=== PATIENT | female | born 1980 ===

== ENCOUNTER 2020-02-05 15:27 | Outpatient (REF) | payer MEDICARE, MEDICAID, SELFPAY ==
[2020-02-05 16:09] LABS: MANUAL DIFF FLAG NO
[2020-02-05 16:15] LABS: Basophils Percent Auto 0.1 % (0-2); Eosinophils Absolute Auto 0.1 X10*3/uL (0.0-0.4); Hematocrit 34.9 % (37-47); Hemoglobin 10.8 g/dl (12.0-16.0); Imm Gran Abs Auto 0.05 X10*3/uL (0.00-0.03); Imm Gran Pct Auto 0.6 % (0.0-0.4); Lymphocytes Absolute Auto 1.6 X10*3/uL (1.2-4.9); Lymphocytes Percent Auto 18.1 % (20-40); Mean Corpuscular HGB Conc 30.9 g/dl (31.0-35.0); Mean Corpuscular Hemoglobin 30.3 pg (27.0-33.0); Mean Platelet Volume 10.2 fL (9.4-12.3); Monocytes Absolute Auto 0.7 X10*3/uL (0.1-1.2); Monocytes Percent Auto 7.9 % (2-11); Neutrophils Absolute Auto 6.5 X10*3/uL (2.0-8.3); Neutrophils Percent Auto 72.3 % (45-73); Platelet Count 290 X10*3/uL (160-400); Red Blood Count 3.56 X10*6/uL (4.20-5.50); Red Cell Distribution Width 15.9 % (11.0-16.0)
[2020-02-05 16:19] LABS: Glucose Urine UA NEG (NEG); Leukocyte Esterase Urine NEG (NEG); Nitrite Urine NEG (NEG); PH 5.5 (5.0-8.0); Specific Gravity - Urine 1.015 (1.005-1.025); Urine Blood NEG (NEG); Urine Ketones NEG (NEG); Urine Protein NEG (NEG-TRACE)
[2020-02-05 16:20] LABS: Appearance Urine CLEAR; Color Urine YELLOW; D Dimer 203 NG/ML
[2020-02-05 16:43] LABS: Alanine Aminotransferase 33 U/L (0-31); Albumin Level 2.9 g/dL (3.5-5.0); Alkaline Phosphatase 129 U/L (39-117); Anion Gap 14 (12-20); Aspartate Amino Transferase 31 U/L (5-31); Bilirubin Direct < 0.2 mg/dL (0.0-0.5); Bilirubin Total 0.3 mg/dL (0.0-1.0); Blood Urea Nitrogen 8 mg/dL (9-16); Calcium 7.9 mg/dL (8.4-10.2); Carbon Dioxide 31 mmol/L (22-29); Chloride 100 mmol/L (96-108); Estimated Glomerular Filt Rate > 60; Glucose Random 87 mg/dL (60-115); Potassium 4.1 mmol/l (3.3-5.1); Sodium 141 mmol/L (135-145); Total Protein 5.7 g/dL (6.5-8.0)
== END 2020-02-05 15:28 | disposition home or self-care (01) ==
LOC: HO.LAB 15:27
PROVIDERS: Absent Provider Internal Medicine; PCP Internal Medicine
DX: K52.9 Noninfective gastroenteritis and colitis, unspecified (principal); R60.0 Localized edema; R62.7 Adult failure to thrive; E88.09 Other disorders of plasma-protein metabolism, not elsewhere classified
CPT/HCPCS: 36415; 80048; 80076; 81003; 85025; 85379

== ENCOUNTER 2020-07-31 10:22 | Outpatient (RCR) | payer OTHER, SELFPAY | END 2020-08-26 12:17 | disposition home or self-care (01) | LOC: HO.WCC 10:22 | PROVIDERS: PCP Internal Medicine; Visit Provider Physician Assistant | DX: L89.152 Pressure ulcer of sacral region, stage 2 (principal); F17.200 Nicotine dependence, unspecified, uncomplicated; Z86.718 Personal history of other venous thrombosis and embolism; I95.9 Hypotension, unspecified | CPT/HCPCS: 97597; 99212 ==

== ENCOUNTER 2021-07-19 10:01 | Emergency (ER) | payer OTHER, SELFPAY ==
--- NOTE | ~2021-07-19 | CT_ITS ---
EXAMINATION: CT ABDOMEN AND PELVIS WITH CONTRAST CLINICAL INFORMATION: RUQ pain, superficial, at J tube surgical site COMPARISON: 06/27/2017 TECHNIQUE: Multidetector volumetric imaging was performed from the superior aspect of the liver through the pubic symphysis following administration of 100 mL Omnipaque 300 intravenous contrast. Sagittal and coronal reformatted images were obtained on the technologist workstation.. This CT examination was performed using dose optimization techniques as appropriate, variously including the following: *Automated exposure control *Adjustment of mA and/or kV according to patient size (this includes techniques or standardized protocols for targeted exams where dose is matched to indication/reason for exam; i.e. extremities or head) *Use of iterative reconstruction technique DLP: 726 mGy-cm FINDINGS: LUNG BASES: The visualized lung bases are unremarkable. PERITONEAL SPACE: Small amount of free fluid seen within the dependent pelvis. LIVER, GALLBLADDER, AND BILIARY TREE: The liver is normal in size, shape, and attenuation. No focal hepatic lesion or biliary ductal dilatation is present. The gallbladder surgically absent. PANCREAS: Unremarkable. SPLEEN: Unremarkable. ADRENAL GLANDS: Unremarkable. KIDNEYS AND URETERS: The kidneys are normal in size, shape, and attenuation. No hydronephrosis, hydroureter, or calculi seen. No perinephric stranding. BLADDER: Unremarkable. GASTROINTESTINAL TRACT: Colon is decompressed but I do not appreciate any colonic wall thickening or pericolonic inflammatory changes. Anastomotic staple line is seen in what appears to be remaining portion of the transverse colon in the left midabdomen. Ileocolic anastomosis is patent with no obstructive changes. The patient is status post Madeleine-en-Y gastric bypass without obvious obstructive changes in the upper abdomen. ABDOMINAL WALL: Fluid is seen within a right upper quadrant along with appears to be a tract tract extending towards the area of the anastomotic clips adjacent bowel loops. The fluid that is seen does not appear to extend through the abdominal wall. There is mild surrounding inflammatory changes in the adjacent fat overlying skin. Etiology of this is uncertain.. LYMPHOVASCULAR STRUCTURES: No lymphadenopathy. The aorta is unremarkable. PELVIC VISCERA: Unremarkable. OSSEOUS STRUCTURES: Unremarkable. CT/CT abdomen pelvis w con IMPRESSION: Extensive chronic appearing changes are seen within both small and large bowel as well as a gastric bypass surgery. Following the bowel loops is extremely difficult. I do not appreciate any obstructive changes to the bowel. There is a small amount of free fluid in the pelvis of uncertain significance or etiology. There does appear to be fluid collection in the right upper quadrant along what appears to be a tract from prior tube. This collection measures approximately 3.1 x 1.7 cm in size in the axial images. There is mild surrounding inflammatory change to the adjacent fat and skin. This collection does not appear to definitively extend through the abdominal wall musculature and there is no intraperitoneal abnormality in this location. Clinical correlation will be needed.
[2021-07-19 11:16] VITALS: BP 146/83; PULSE 74; RESP 18; TEMP 36.9; O2SAT 100; BMI 23.1
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
[2021-07-19 12:27] LABS: MANUAL DIFF FLAG NO
[2021-07-19 12:36] LABS: Basophils Percent Auto 0.3 % (0-2); Eosinophils Absolute Auto 0.1 X10*3/uL (0.0-0.4); Eosinophils Percent Auto 0.5 % (0-4); Hematocrit 35.7 % (37.0-47.0); Hemoglobin 11.5 g/dl (12.0-16.0); Imm Gran Abs Auto 0.03 X10*3/uL (0.00-0.03); Imm Gran Pct Auto 0.3 % (0.0-0.4); Lymphocytes Absolute Auto 1.8 X10*3/uL (1.2-4.9); Lymphocytes Percent Auto 17.8 % (20-40); Mean Corpuscular HGB Conc 32.2 g/dl (31.0-35.0); Mean Corpuscular Hemoglobin 30.1 pg (27.0-33.0); Mean Corpuscular Volume 93.5 fL (80.0-98.0); Mean Platelet Volume 10.4 fL (9.4-12.3); Monocytes Absolute Auto 0.7 X10*3/uL (0.1-1.2); Neutrophils Absolute Auto 7.6 x10*3/uL (2.0-8.3); Neutrophils Percent Auto 74.1 % (45-73); Platelet Count 238 X10*3/uL (160-400); Red Blood Count 3.82 X10*6/uL (4.20-5.50); Red Cell Distribution Width 13.8 % (11.0-16.0); White Blood Count 10.3 X10*3/uL (4.8-10.8)
[2021-07-19] MEDS: traMADoL HCL 50 MG TABLET PO (12:36)
[2021-07-19 13:38] LABS: Alanine Aminotransferase 10 U/L (0-31); Albumin Level 3.5 g/dL (3.5-5.0); Alkaline Phosphatase 120 U/L (39-117); Anion Gap 9 (12-20); Aspartate Amino Transferase 14 U/L (5-31); Bilirubin Direct < 0.2 mg/dL (0.0-0.5); Bilirubin Total 0.2 mg/dL (0.0-1.0); Blood Urea Nitrogen 7 mg/dL (9-16); Calcium 8.4 mg/dL (8.4-10.2); Carbon Dioxide 26 mmol/L (22-29); Chloride 108 mmol/L (96-108); Creatinine Clr Calc Pharmacy 101.3; Estimated Glomerular Filt Rate > 60; Glucose Random 94 mg/dL (60-115); Potassium 4.1 mmol/L (3.3-5.1); Sodium 139 mmol/L (135-145); Total Protein 6.1 g/dL (6.5-8.0)
[2021-07-19 14:35] VITALS: BP 110/60; PULSE 88; RESP 18; TEMP 36.8; O2SAT 98
[2021-07-19 16:15] LABS: HCG Quantitative < 2 mIU/mL
[2021-07-19] MEDS: methylPREDNISolone Sod Succ 125 MG/2 ML VIAL IVPUSH (16:18)
[2021-07-19] MEDS: diphenhydrAMINE HCL 50 MG/ML VIAL IVPUSH (16:18)
[2021-07-19] MEDS: Famotidine/PF 20 MG/2 ML VIAL IVPUSH (16:18)
[2021-07-19] MEDS: iohexoL 350 MG/ML 100 ML INFUS..BTL IV (18:00)
[2021-07-19 19:38] VITALS: BP 151/81; PULSE 81; RESP 18; TEMP 37.3; O2SAT 99
[2021-07-19] MEDS: oxyCODONE HCl Immed Release 5 MG TABLET PO (20:22)
[2021-07-19] MEDS: Sulfamethox/Trimeth 800/160 TABLET 1 TAB PO (20:22)
== END 2021-07-19 20:26 | disposition home or self-care (01) ==
PROVIDERS: Emergency Provider Emergency Medicine; PCP Internal Medicine
DX: L03.311 Cellulitis of abdominal wall (principal); L76.34 Postprocedural seroma of skin and subcutaneous tissue following other procedure; R10.11 Right upper quadrant pain; R10.2 Pelvic and perineal pain; Z79.899 Other long term (current) drug therapy
CPT/HCPCS: 36415; 74177; 80048; 80076; 84702; 85025; 96374; 96375; 99284; 99285; J1200; J2930; Q9967

== ENCOUNTER → 2021-07-26 14:05 | Outpatient (BNVA) | payer OTHER, SELFPAY | PROVIDERS: PCP Internal Medicine; Referring Provider Internal Medicine; Visit Provider Surgery | DX: T79.2XXA Traumatic secondary and recurrent hemorrhage and seroma, initial encounter (principal) | CPT/HCPCS: 99202 ==

== ENCOUNTER 2022-08-11 11:18 | Emergency (ER) | payer OTHER, SELFPAY ==
--- NOTE | ~2022-08-11 | XR_ITS ---
EXAMINATION: XR ABDOMEN KUB CLINICAL INDICATION: Abdominal pain COMPARISON: November 20, [address] scan of July 19, 2021 TECHNIQUE: AP view of the abdomen. FINDINGS: Patient status post abdominal surgery with multiple clips and staple lines seen bilaterally. No dilated loops of large or small bowel are evident. No pneumatosis intestinalis. There are some phleboliths seen about the pelvis. No definite calculi are identified overlying the expected locations of the kidneys. There is a moderate stool burden present within the descending and sigmoid colon. No destructive bony abnormalities appreciated. XR/XR KUB IMPRESSION: No evidence of ileus or obstruction.
[2022-08-11 11:33] VITALS: BP 180/110; PULSE 90; RESP 14; TEMP 36.9; O2SAT 99; BMI 20.6
--- OUTSIDE RECORDS SUMMARY | 2022-08-11 11:46 | XMS_ITS | Continuity of Care Document ---
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
--- OUTSIDE RECORDS SUMMARY | 2022-08-11 11:46 | XMS_ITS | Continuity of Care Document ---
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 [employer]er Driver Name Role Phone Jarrod DANIELS, Spencer Primary Care Physician Encounter [facility] Date(s): 12/18/19 - 01/17/20 [facility] [address] [place] [id number]- [place] Allergies, Adverse Reactions, Alerts Substance Reaction Severity Status shellfish Anaphylactic reaction Active aspirin anaphylaxis Active penicillins anaphylaxis Active morphine Gastrointestinal upset Activ e Immunizations Given and Recorded Vaccine Date Status [...] 0 Refills, Maintenance, 05/21/19 9:41:00 EST, Tablet, [facility], 163, cm, 05/21/19 6:13:00 EST, [...] EDT, Supply Start Date: 11/25/19 Status: Ordered calcium carbonate 500 mg (200 [...] Active PTSD - Post-traumatic stress disorder(Confirmed) Active Social History Social History Type Response Smoking Status Former smoker entered on: 06/12/14 Sex
--- OUTSIDE RECORDS SUMMARY | 2022-08-11 11:46 | XMS_ITS | Continuity of Care Document ---
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
--- OUTSIDE RECORDS SUMMARY | 2022-08-11 11:46 | XMS_ITS | Continuity of Care Document ---
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 Role Phone Spencer Garay MD Primary Care Physician Encounter [facility] [place] [place] Date(s): 08/01/19 - 08/31/19 [facility] [address] [place] [address]- [place] Attending Physician: Admmyah, Lynn Admitting Physician: AdmtrLynn Referring Physician: Admtr, Ar8 Allergies, Adverse Reactions, [...] 0 Refills, Maintenance, 05/21/19 9:41:00 EST, Tablet, [facility], 163, cm, 05/21/19 6:13:00 [...] EST, Suppository Start Date: 05/14/19 Status: Ordered calcium carbonate 500 mg (200 [...] EDT, Tablet Start Date: 08/13/19 Status: Ordered Lasix 40 mg oral tablet [...] CR Tablet Start Date: 08/13/19 Status: Ordered Protonix 40 mg oral delayed [...]
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
--- OUTSIDE RECORDS SUMMARY | 2022-08-11 11:46 | XMS_ITS | Continuity of Care Document ---
Author Name Unknown Organization [facility] em Address Unknown Care Team Providers Care Online Content Developer Name Role Phone Spencer Garay MD Primary Care Physician [place] [facility] [place] Date(s): 04/29/20 - 05/29/20 [facility] Attending Physician: Lynn Nguyen Admitting Physician: Lynn Nguyen Referring Physician: Lynn Nguyen Allergies, Adverse Reactions, Alerts Substance Reaction Severity [...] 0 Refills, Maintenance, 05/21/19 9:41:00 EST, Tablet, [facility], 163, cm, 05/21/19 6:13:00 [...]
--- OUTSIDE RECORDS SUMMARY | 2022-08-11 11:47 | XMS_ITS | Continuity of Care Document ---
Author Name Unknown Organization [facility] Address [address] [place] [address]- Care Team Providers Care Hide Buffer Name Role Phone Jarrod DANIELS, Spencer Primary Care Physician Encounter [facility] [place] Date(s): 03/18/20 - 04/17/20 [facility] [address] [place] [address]- Attending Physician: Lynn Nguyen Admitting Physician: AdmtrLynn Referring Physician: Admtr, Ar8 [...] 0 Refills, Maintenance, 05/21/19 9:41:00 EST, Tablet, [facility], 163, cm, 05/21/19 [...]
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
--- OUTSIDE RECORDS SUMMARY | 2022-08-11 11:47 | XMS_ITS | Continuity of Care Document ---
Author Name Unknown Organization [facility]ology Address [address] [place] [address]- Care Team Providers Care Labor And Delivery Nurse Name Role Phone Spencer Garay MD Primary Care Physician [phone] Encounter [facility] [place] Date(s): 04/29/19 - 05/06/19 [facility] Gastroenterology [address] [place] [address]- [place] Attending Physician: Nancy Hearn MD Admitting Physician: Nancy Hearn MD Referring Physician: Paulino Miller MD Allergies, Adverse Reactions, Alerts Substance Reaction [...] recent to oldest [Reference Range]: 1 Height 163 cm (04/29/19 3:32 PM) Oxygen Saturation [94-100 %] 88 % *L* (04/29/19 3:32 PM) Pulse Rate [55-90 bpm] 59 bpm (04/29/19 3:32 PM) Blood Pressure [90-138/55-84 mm Hg] 110/ 66mm Hg (04/29/19 3:32 PM) Blood pressure sites Arm, left (04/29/19 3:32 PM) Social History Social History Type Response Smoking Status Former smoker entered on: 06/12/14 Sex
--- OUTSIDE RECORDS SUMMARY | 2022-08-11 11:47 | XMS_ITS | Continuity of Care Document ---
Author Name Unknown Organization [facility]enterology Address [address] [place] [address]- Care Team Providers Care Mutuel Cashier Name Role Phone Jarrod DANIELS, Spencer Primary Care Physician Encounter [facility] [place] Date(s): 11/27/19 - 12/27/19 [facility] G[facility] [address] [place] [address]- [place] Allergies, Adverse Reactions, Alerts Substance Reaction [...] 0 Refills, Maintenance, 05/21/19 9:41:00 EST, Tablet, [facility], 163, cm, 05/21/19 6:13:00 [...]
--- OUTSIDE RECORDS SUMMARY | 2022-08-11 11:47 | XMS_ITS | Continuity of Care Document ---
Author Name Unknown Organization [facility] Address [address] [place] [address]- Care Team Providers Care Telephone Operator Name Role Phone Spencer Garay MD Primary Care Physician [phone] Encounter [facility] [place] Date(s): 04/29/19 - 07/24/19 [facility]astroenter[facility] [address] [place] [address]- [place] Attending Physician: Nancy Hearn MD Admitting Physician: Nancy Hearn MD Referring Physician: Spencer Garay MD Allergies, Adverse Reactions, Alerts Substance Reaction [...] EDT, Tablet Start Date: 06/10/19 Status: Ordered Bisac-Evac 10 mg rectal suppository 1 supp = 10 mg, Rectally, Daily, PRN for constipation, Maintenance, 05/14/19 17:41:00 EST, Suppository Start Date: 05/14/19 Status: Ordered calcium carbonate 500 mg (200 mg elemental calcium) oral tablet, chewable 500 mg, 1, tablet, Chew, 3 times a day, Refills 0, Maintenance, 06/10/19 12:02:00 EDT Start Date: 06/10/19 Status: Ordered ergocalciferol 2000 intl units oral capsule 1 capsule = 2,000 International_Units, By Mouth, Daily, Maintenance, 05/14/19 16:55:00 EST Start Date: 05/14/19 Status: Ordered ferrous sulfate 324 mg (65 mg elemental iron) oral delayed release tablet 1 tablet = 324 mg, By Mouth, 2 times a day, Maintenance, 05/14/19 16:58:00 EST Start Date: 05/14/19 Status: Ordered Lasix 40 mg oral tablet [...] EDT, Tablet Start Date: 06/10/19 Status: Ordered methadone 10 mg/5 mL oral solution 10 mL = 20 mg, By Mouth, 2 times a day, 0 Refills, Maintenance, 06/05/19 2:14:00 EDT, Partial fill upon patient request Start Date: 06/05/19 Status: Ordered Milk of Magnesia 8% oral suspension 30 mL = 2.4 Gm, By Mouth, Daily, PRN for constipation, Maintenance, 05/14/19 17:40:00 EST, Suspension Start Date: 05/14/19 Status: Ordered Multivit Therapeutic/Minerals Liquid 15 mL, By Mouth, Daily, 0 Refills, Maintenance, 06/10/19 12:03:00 EDT, Liquid Start Date: 06/10/19 Status: Ordered Protonix 40 mg oral delayed [...]
--- OUTSIDE RECORDS SUMMARY | 2022-08-11 11:47 | XMS_ITS | Continuity of Care Document ---
Author Name Unknown Organization [facility] Address [address] [place] [address]- Care Team Providers Care Project Lead Name Role Phone Jarrod DANIELS, Spencer Primary Care Physician [place] [facility] [place] 03/18/20 - 03/25/20 [facility] G[facility]enterology [address] [place] [address]- Attending Physician: Nancy Hearn MD Admitting Physician: [...] 0 Refills, Maintenance, 05/21/19 9:41:00 EST, Tablet, [facility], 163, cm, 05/21/19 [...]
--- OUTSIDE RECORDS SUMMARY | 2022-08-11 11:47 | XMS_ITS | Continuity of Care Document ---
Author Name Unknown Organization [facility]enterology Address [address] [place] [address]- Care Team Providers Care Template Cutter Name Role Phone Spencer Garay MD Primary Care Physician [phone] Encounter [facility] [place] Date(s): 12/09/19 - 12/16/19 [facility] Gastroenterology [address] [place] [address]- [place] Attending Physician: Nancy Hearn MD Admitting [...] 0 Refills, Maintenance, 05/21/19 9:41:00 EST, Tablet, [facility], 163, cm, 05/21/19 6:13:00 [...] oldest [Reference Range]: 1 Height 162.5 cm (12/09/19 3:16 PM) Oxygen Saturation [94-100 %] 98 % (12/09/19 3:16 PM) Pulse Rate [55-90 bpm] 82 bpm (12/09/19 3:16 PM) Blood Pressure [90-138/55-84 mm Hg] 114/ 66mm Hg (12/09/19 3:16 PM) Blood pressure sites Arm, right (12/09/19 3:16 PM) Weight Obtained Via Standing scale (12/09/19 3:16 PM) Social History Social History Type Response Smoking Status Former smoker entered on: 06/12/14 Sex
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
--- OUTSIDE RECORDS SUMMARY | 2022-08-11 11:47 | XMS_ITS | Continuity of Care Document ---
Author Name Unknown Organization [facility] oenterology Address [address] [place] [address]- Care Team Providers Care Childcare Worker Name Role Phone Jarrod DANIELS, Spencer Primary Care Physician [place] [facility] [place](s): 03/30/20 - 04/29/20 [facility] Gastroenterology [address] [place] [address]- Allergies, Adverse Reactions, Alerts Substance Reaction Severity [...] 0 Refills, Maintenance, 05/21/19 9:41:00 EST, Tablet, [facility], 163, cm, 05/21/19 6:13:00 [...]
--- OUTSIDE RECORDS SUMMARY | 2022-08-11 11:47 | XMS_ITS | Continuity of Care Document ---
Author Name Unknown Organization [facility] oenterology Address [address] [place] [address]- Care Team Providers Care Ocean Transportation Intermediary Name Role Phone Spencer Garay MD Primary Care Physician [place] [facility] [place](s): 10/30/19 - 11/06/19 [facility] Gastroenterology [address] [place] [address]- [place] Attending Physician: Nancy Hearn MD Admitting [...] 0 Refills, Maintenance, 05/21/19 9:41:00 EST, Tablet, [facility], 163, cm, [...]
--- OUTSIDE RECORDS SUMMARY | 2022-08-11 11:47 | XMS_ITS | Continuity of Care Document ---
Author Name Unknown Organization [facility] em Address Unknown Care Team Providers Care Ribbing Machine Operator Name Role Phone Spencer Garay MD Primary Care Physician En[facility] [place] Date(s): 04/29/20 - 05/06/20 [facility] Attending Physician: Ed Soto MD Admitting Physician: Ed Soto MD Referring Physician: Not on Staff, Referring [...] 0 Refills, Maintenance, 05/21/19 9:41:00 EST, Tablet, [facility], 163, cm, 05/21/19 6:13:00 EST, [...] oldest [Reference Range]: 1 Height 162.5 cm (04/29/20 10:53 AM) Pulse Rate [55-90 bpm] 105 bpm *H* (04/29/20 10:53 AM) Respiratory Rate [16-30 br/min] 14 br/mi n *L* (04/29/20 10:53 AM) Temperature [96.8-100.4 DegF] 99.2 DegF (04/29/20 10:53 AM) Temperature Route Oral (04/29/20 10:53 AM) Social History Social History Type Response Smoking Status Former smoker entered on: 06/12/14 Sex
--- OUTSIDE RECORDS SUMMARY | 2022-08-11 11:47 | XMS_ITS | Continuity of Care Document ---
Author Name Unknown Organization [facility] em Address Unknown Care Team Providers Care Custodian Blood Bank Name Role Phone Jarrod DANIELS, Spencer Primary Care Physician Encounter [facility] [place] Date(s): 04/20/20 - 05/22/20 [facility] Attending Physician: Ed Soto MD Admitting Physician: Ed Soto MD Referring Physician: Nancy Hearn MD Allergies, Adverse Reactions, Alerts Substance Reaction [...] 0 Refills, Maintenance, 05/21/19 9:41:00 EST, Tablet, [facility], 163, cm, 05/21/19 6:13:00 [...]
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
--- OUTSIDE RECORDS SUMMARY | 2022-08-11 11:47 | XMS_ITS | Continuity of Care Document ---
Author Name Unknown Organization [facility] Address [address] [place] [address]- Care Team Providers Care Nutrition Educator Name Role Phone Spencer Garay MD Primary Care Physician Encounter [facility] [place] Date(s): 08/01/19 - 08/08/19 [facility] [address] [place] [address]- [place] Attending Physician: Nancy Hearn MD Admitting Physician: Nancy Hearn MD Referring Physician: Not on Staff, Referring [...] 0 Refills, Maintenance, 05/21/19 9:41:00 EST, Tablet, [facility], 163, cm, 05/21/19 6:13:00 [...]
[2022-08-11 12:40] LABS: MANUAL DIFF FLAG NO
[2022-08-11 12:46] LABS: Basophils Percent Auto 0.3 % (0-2); Eosinophils Percent Auto 0.4 % (0-4); Hematocrit 29.6 % (37.0-47.0); Hemoglobin 9.3 g/dl (12.0-16.0); Imm Gran Abs Auto 0.01 X10*3/uL (0.00-0.03); Imm Gran Pct Auto 0.1 % (0.0-0.4); Lymphocytes Absolute Auto 1.2 X10*3/uL (1.2-4.9); Lymphocytes Percent Auto 16.6 % (20-40); Mean Corpuscular HGB Conc 31.4 g/dl (31.0-35.0); Mean Corpuscular Hemoglobin 25.9 pg (27.0-33.0); Mean Corpuscular Volume 82.5 fL (80.0-98.0); Monocytes Absolute Auto 0.3 X10*3/uL (0.1-1.2); Monocytes Percent Auto 4.6 % (2-11); Neutrophils Absolute Auto 5.8 x10*3/uL (2.0-8.3); Platelet Count 260 X10*3/uL (160-400); Red Blood Count 3.59 X10*6/uL (4.20-5.50); Red Cell Distribution Width 16.6 % (11.0-16.0); White Blood Count 7.4 X10*3/uL (4.8-10.8)
[2022-08-11 12:58] LABS: Alanine Aminotransferase 7 U/L (0-31); Albumin Level 3.1 g/dL (3.5-5.0); Alkaline Phosphatase 101 U/L (39-117); Anion Gap 10 (12-20); Aspartate Amino Transferase 16 U/L (5-31); Bilirubin Total 0.3 mg/dL (0.0-1.0); Blood Urea Nitrogen 5 mg/dL (9-16); Calcium 8.4 mg/dL (8.4-10.2); Carbon Dioxide 22 mmol/L (22-29); Chloride 110 mmol/L (96-108); Creatinine Clr Calc Pharmacy 95.4; Estimated Glomerular Filt Rate > 60; Glucose Random 94 mg/dL (60-115); Lipase 9 U/L (8-78); Potassium 4.3 mmol/L (3.3-5.1); Sodium 138 mmol/L (135-145)
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
[2022-08-11 13:52] VITALS: BP 113/80; PULSE 69; RESP 14; TEMP 36.9; O2SAT 98
[2022-08-11] MEDS: Magnesium Hydrox/Alum Hydrox 30 ML ORAL.SUSP PO (15:29)
[2022-08-11] MEDS: Acetaminophen 325 MG TABLET 975 MG PO (15:29)
[2022-08-11] MEDS: Lidocaine HCl Viscous 2 % 15 ML SOLUTION 10 ML MUCOUS MEM (15:29)
== END 2022-08-11 17:01 | disposition home or self-care (01) ==
PROVIDERS: Emergency Provider Student in an Organized Health Care Education/Training Program; PCP Internal Medicine
DX: K29.70 Gastritis, unspecified, without bleeding (principal); R10.13 Epigastric pain; Z79.899 Other long term (current) drug therapy
CPT/HCPCS: 36415; 74018; 80053; 83690; 85025; 99283; 99284

== ENCOUNTER 2024-06-28 10:23 | Emergency (ER) | payer OTHER, SELFPAY ==
[2024-06-28] VITALS (7 sets, daily range): BP systolic 128–159; BP diastolic 89–104; PULSE 72–101; RESP 15–20; TEMP 36.6–37.2; O2SAT 98–100; BMI 18.4
--- NOTE | ~2024-06-28 | CT_ITS ---
CLINICAL HISTORY: diffuse abd pain, N V D CT abdomen and pelvis with contrast Comparison: CT - CT ABDOMEN PELVIS W IV CON - 06/28/24 18:03 EDT Findings: The lung bases are clear. Gallbladder is surgically absent. Stable intrahepatic and extrahepatic biliary ductal dilatation. Common bile duct measures 10 mm. There is new, moderate dilatation of the pancreatic duct, measuring 5 mm diameter. Solid organs are otherwise within normal limits. No bowel obstruction, pneumoperitoneum, or pneumatosis. Pelvic contents unremarkable. Appendix is not seen. The bones are intact. IMPRESSION: 1. No acute process. 2. New pancreatic ductal dilatation. Underlying neoplasm can not be excluded. 3. Stable intrahepatic and extrahepatic biliary ductal dilatation. This document has been electronically signed by: Ryan Andres MD on 06/28/2024 18:46:46
[2024-06-28 10:58] LABS: MANUAL DIFF FLAG NO
[2024-06-28 11:00] LABS: Basophils Percent Auto 0.2 % (0-2); Hematocrit 31.4 % (37.0-47.0); Hemoglobin 9.5 g/dl (12.0-16.0); Imm Gran Abs Auto 0.05 X10*3/uL (0.00-0.03); Imm Gran Pct Auto 0.4 % (0.0-0.4); Lymphocytes Absolute Auto 1.2 X10*3/uL (1.2-4.9); Lymphocytes Percent Auto 9.2 % (20-40); Mean Corpuscular HGB Conc 30.3 g/dl (31.0-35.0); Mean Corpuscular Hemoglobin 23.4 pg (27.0-33.0); Mean Corpuscular Volume 77.3 fL (80.0-98.0); Monocytes Absolute Auto 0.3 X10*3/uL (0.1-1.2); Monocytes Percent Auto 2.3 % (2-11); Neutrophils Absolute Auto 11.3 x10*3/uL (2.0-8.3); Neutrophils Percent Auto 87.9 % (45-73); Platelet Count 486 X10*3/uL (160-400); Red Blood Count 4.06 X10*6/uL (4.20-5.50); Red Cell Distribution Width 22.8 % (11.0-16.0); White Blood Count 12.9 X10*3/uL (4.8-10.8)
[2024-06-28 11:13] LABS: Alanine Aminotransferase 6 U/L (0-31); Albumin Level 2.6 g/dL (3.5-5.0); Alkaline Phosphatase 131 U/L (39-117); Anion Gap 9 (12-20); Aspartate Amino Transferase 24 U/L (5-31); Bilirubin Total 0.3 mg/dL (0.0-1.0); Blood Urea Nitrogen 7 mg/dL (9-16); Calcium 8.2 mg/dL (8.4-10.2); Carbon Dioxide 26 mmol/L (22-29); Chloride 110 mmol/L (96-108); Creatinine Clr Calc Pharmacy 91.4; Estimated Glomerular Filt Rate > 60; Glucose Random 111 mg/dL (60-115); Lipase 7 U/L (8-78); Potassium 4.4 mmol/L (3.3-5.1); Sodium 141 mmol/L (135-145); Total Protein 5.9 g/dL (6.5-8.0)
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
--- NOTE | 2024-06-28 13:40 | PC.NURSE ---
Patient presents with abdominal pain for past 2 days with assoc anorexia. Patient rocking the bed and appears uncomfortably.
--- NOTE | 2024-06-28 14:31 | MHC.EDTECH ---
pt states she is unable to produce urine for a sample at this time.
[2024-06-28 14:45] LABS: Influenza A PCR NEGATIVE (Negative); Influenza B PCR NEGATIVE (Negative); Resp Syncy Virus RNA Qual PCR NEGATIVE (Negative); SARS COV2 PCR INHOUSE NEGATIVE (Negative)
[2024-06-28 15:00] LABS: HCG Quantitative < 2 mIU/mL
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
--- OUTSIDE RECORDS SUMMARY | 2024-06-28 15:37 | XMS_ITS | Clinical Summary ---
Author Organization [facility] Facility Address [address] [place] [id number] Care Team Providers Care Reproduction Machine Loader Name Role Phone Unavailable Primary Care Provider Unavailabl e Social History Tobacco Use Types Packs/Day Years Used Date Smoking Tobacco: Never Assessed Comments Unknown Sex and Gender Information Value Date Recorded Sex Assigned at Not on file Legal Sex Female 12:49 PM EST Gender Identity Not on file Sexual Orientation Not on file Plan of Treatment Health Maintenance Due Date Last Done Comments Hepatitis B Vaccine (1 of 3 - 19+ 3-dose series) 2001 Influenza Vaccine (#1) 2023 Pneumococcal Vaccine: Pediat rics (0 to 5 Years) and At-Risk Patients (6 to 64 Years) Aged Out No longer eligi ble based on patient's age to complete this topic Insurance MEDICARE [place]ICAID [place]
--- NOTE | 2024-06-28 16:05 | PC.NURSE ---
Have attempted to verify patients methadone dose for the past several hours with no success.
[2024-06-28] MEDS: 0.9 % Sodium Chloride 1,000 ML 999 ML IV (17:49)
[2024-06-28] MEDS: Morphine Sulfate 4 MG/ML CARTRIDGE IVPUSH ×2 (17:49→19:10)
[2024-06-28] MEDS: ondansetron HCL 4 MG/2 ML VIAL IVPUSH (17:49)
[2024-06-28] MEDS: iohexoL 350 MG/ML 100 ML INFUS..BTL IV (18:09)
[2024-06-28 20:44] LABS: Appearance Urine Clear; Color Urine Yellow; Glucose Urine UA Negative (Negative); Leukocyte Esterase Urine Trace (Negative); Nitrite Urine Negative (Negative); UMIC TRIGGER UACC YES; Urine Blood Negative (Negative); Urine Ketones 15 mg/dL (Negative); Urine Protein Negative (Neg-Trace)
[2024-06-28 20:59] LABS: Bacteria Urine Trace (None Seen); Hyaline Casts Urine 0-2 /LPF (0-2); RBC Urine 0-2 /HPF (0-2); WBC Urine 0-5 /HPF (0-5)
[2024-06-28] MEDS: Magnesium Hydrox/Alum Hydrox 30 ML ORAL.SUSP PO (21:08)
[2024-06-28] MEDS: Pantoprazole Sodium 40 MG/10 ML VIAL IVPUSH (21:08)
[2024-06-28] MEDS: Lidocaine HCl Viscous 2 % 15 ML SOLUTION MUCOUS MEM (21:08)
== END 2024-06-28 21:30 | disposition home or self-care (01) ==
PROVIDERS: Physician Assistant; Physician Assistant Medical; Emergency Provider Emergency Medicine; PCP Internal Medicine
DX: R10.2 Pelvic and perineal pain (principal); R11.2 Nausea with vomiting, unspecified; R19.7 Diarrhea, unspecified; Z79.899 Other long term (current) drug therapy; Z03.818 Encounter for observation for suspected exposure to other biological agents ruled out
CPT/HCPCS: 0241U; 36415; 74177; 80053; 81001; 83690; 83735; 84702; 85025; 96361; 96374; 96375; 96376; 99284; 99285; J2270; J2405; J2470; Q9967

== ENCOUNTER → 2024-06-28 14:24 | Outpatient (BNV) | payer OTHER, SELFPAY | PROVIDERS: Emergency Provider Emergency Medicine; PCP Internal Medicine; Visit Provider Radiology Diagnostic Radiology | DX: K86.89 Other specified diseases of pancreas (principal) | CPT/HCPCS: 74177 ==

== ENCOUNTER 2025-03-03 16:59 | Outpatient (REF) | payer OTHER, SELFPAY ==
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
[2025-03-03 23:53] LABS: CT PCR Urine NOT DETECTED (Not Detect.); NG PCR Urine NOT DETECTED (Not Detect.)
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
--- OUTSIDE RECORDS SUMMARY | 2025-03-04 02:19 | XMS_ITS | Encounter Summary ---
Author Organization [employer] Address [address] [facility] [address] [place] [address] Care Team Providers Care Caterer Helper Name Role Phone Nimo Gr NP Primary Care Provider [phone] Encounter Details Date Type Department Care Team (Latest Contact Info) Description 03/03/2025 Travel Social History Tobacco Use Types Packs/Day Years Used Date Smoking Tobacco: Every Day Cigarettes 0.5 12.9 Started: 2012 Smokeless Tobacco: Never Alcohol Answer Date Recorded How often do [...] AM EDT documented as of this encounter Functional Status * Audit Alcohol Screening Question Answer Date of Assessment Author AUDIT screening declined yes 03/03/2025 1:55 PM EST Nimo Gr NP * Over the past 2 weeks, how often have you been bothered by any of the following problems? Question Answer Date of Assessment Author Patient Health Questionnaire -2 Score 5 03/03/2025 3:50 PM EST Mirna Montana MA * Little interest or pleasure in doing things Answer Date of Assessment Author Nearly every day 03/03/2025 3:50 PM EST Mirna Montana MA * Feeling down, depressed, or hopeless Answer Date of Assessment Author More than half the days 03/03/2025 3:50 PM EST Mirna Guerra MA * Trouble falling or staying asleep, or sleeping too much Answer Date of Assessment Author Nearly every day 03/03/2025 3:50 PM EST Mirna Montana MA * Feeling tired or having little [...] or on edge 3 03/03/2025 3:51 PM Mirna Saenz MA Not being able to stop or co ntrol worrying 2 03/03/2025 3:51 PM Mirna Saenz MA Worrying too much about diff erent things 2 03/03/2025 3:51 PM Mirna Saenz MA Trouble relaxing 3 03/03/2025 3:51 PM Mirna De Oliveira MA Being so restless that it is hard to sit still 2 03/03/2025 3:51 PM Mirna Saenz MA Becoming easily annoyed or irritable 3 03/03/2025 3:51 PM Mirna Saenz MA Feeling afraid as if somethi ng awful might happen 3 03/03/2025 3:51 PM Mirna Saenz MA VANGIE-7 Total Score 18 03/03/2025 3:51 PM Mirna Saenz MA * How difficult have these problems made it for you to do your work, take care of things at home, or get along with other people? Answer Date of Assessment Author Very difficult 03/03/2025 3:50 PM EST Mirna Montana MA documented as of this encounter Plan of Treatment Not on file documented as of this encounter Visit Diagnoses Not on filedocumented in this encounter Additional Health Concerns Assessment Noted Time PHQ-9 Depression Total Score: 23 025 3:50 PM EST documented as of this encounter Care Teams Caterer Helper Relationship Specialty Start Date End Date Nimo Gr NP [address] [place] [address] PCP - General Family Medicine 03/03/25 documented as of this encounter
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
== END 2025-03-03 17:00 | disposition home or self-care (01) ==
LOC: HO.HHCLNP 16:59
PROVIDERS: Visit Provider Nurse Practitioner
DX: Z20.2 Contact with and (suspected) exposure to infections with a predominantly sexual mode of transmission (principal)
CPT/HCPCS: 87491; 87591; 87661